=== PATIENT | male | born 1950 | race Caucasian/White ===

== ENCOUNTER 2017-11-13 19:05 | Emergency (ER) | payer MEDICARE ==
[2017-11-13 20:01] LABS: #Eosinphils 0.2 thou/uL (0.0-0.7); #Lymphocytes 1.2 thou/uL (1.20-3.40); #Monocytes 0.7 thou/uL (0.11-0.59); #Neutrophils 5.7 thou/uL (1.40-6.50); %Basophils 0.6 % (0.0-1.0); %Eosinophils 2.1 % (0.0-10.0); %Lymphocytes 15.7 % (21.0-51.0); %Monocytes 8.4 % (0.0-10.0); %Neutrophils 73.2 % (42.0-75.0); Hemoglobin 15.6 g/dL (14.0-18.0); Mean Corpuscular Hemoglobin 29.3 pg (27.0-31.0); Mean Corpuscular Volume 86.1 fl (80.0-94.0); Mean Platelet Volume 6.2 fL (7.4-10.4); Platelet Count 275 thou/uL (130-400); Red Blood Cell (RBC) Count 5.34 mill/uL (4.70-6.10); White Blood Cell (WBC) Count 7.7 thou/uL (4.8-10.8)
--- NOTE | 2017-11-13 20:09 | RAD ---
PORTABLE AP CHEST X-RAY 11/13/17 HISTORY: Headache since this a.m. Left upper extremity paresthesias. COMPARISON: 05/27/10. FINDINGS: The cardiac silhouette and pulmonary vasculature are within normal limits. The lungs remain clear. Th ere has been no interval change when compared to the prior exam. IMPRESSION: No acute cardiopulmonary process. POS: MARTHA
[2017-11-13 20:19] LABS: ALT (SGPT) 28 U/L (8-55); AST (SGOT) 19 U/L (5-34); Albumin 4.2 g/dL (3.4-4.8); Alkaline Phosphatase 43 U/L (40-150); Anion Gap 10 mmol/L (10-20); BUN (Urea Nitrogen) 10 mg/dL (8.4-25.7); Bilirubin, Total 0.6 mg/dL (0.2-1.2); Calc. Creatinine Clearance 0 mL/min (70-130); Calcium 9.2 mg/dL (7.8-10.44); Carbon Dioxide 30 mmol/L (23-31); Chloride 99 mmol/L (98-107); Estimated GFR-MDRD 84; Globulin 2.9 g/dL (2.4-3.5); Glucose 107 mg/dL (80-115); Protein, Total 7.1 g/dL (5.8-8.1); Sodium 135 mmol/L (136-145)
[2017-11-13 20:26] LABS: CKMB 3.5 ng/mL (0-6.6)
--- NOTE | 2017-11-13 20:50 | CT ---
NONCONTRAST CT HEAD 11/13/17 HISTORY: Headache with onset 1000 hours. Patient fills pressure behind eyes and sinuses. COMPARISON: None available. FINDINGS: There is no evidence of a hemorrhage, acute infarction, mass effect, or midline shift. Mild cerebral volume loss is present. The ventricular system is normal in size, shape and position for the degree o f sulcal atrophy. Minimal mucosal thickening is seen in the left maxillary antrum. The mastoid air ce lls are clear. There is a oval shaped soft tissue appearing mass seen within the region of the left nasal passage wh ich measures 2.8 cm x 1.4 cm which may represent a polyp. Calvarial structures are intact. IMPRESSION: 1. No acute intracranial abnormalities demonstrated. 2. Mass in the region of the left nasal passage which may represent a polyp. Direct visualizatio n is suggested. 3. Mild cerebral volume loss. POS: MARTHA
[2017-11-13] MEDS ORDERED: Dexamethasone 4 mg/ml Vial ONE (21:51)
== END 2017-11-13 22:27 | disposition home or self-care (01) ==
LOC: ERS 19:05
DX: J02.9 Acute pharyngitis, unspecified (principal); R09.81 Nasal congestion; I25.2 Old myocardial infarction; F41.9 Anxiety disorder, unspecified; F17.220 Nicotine dependence, chewing tobacco, uncomplicated; Z79.82 Long term (current) use of aspirin
CPT/HCPCS: 36415; 70450; 71045; 80053; 82553; 84484; 85025; 93005; 96374; J1100

== ENCOUNTER 2023-11-01 10:10 | Emergency (ER) | payer MEDICARE ==
[2023-11-01 10:45] LABS: #Eosinphils 0.1 thou/uL (0.0-0.7); #Monocytes 0.7 thou/uL (0.11-0.59); #Neutrophils 5.5 thou/uL (1.40-6.50); %Basophils 0.4 % (0.0-1.0); %Eosinophils 1.2 % (0.0-10.0); %Lymphocytes 12.9 % (21.0-51.0); %Monocytes 9.3 % (0.0-10.0); %Neutrophils 75.8 % (42.0-75.0); Hematocrit 45.6 % (42.0-52.0); Hemoglobin 15.7 g/dL (14.0-18.0); Mean Corpuscular HGB CONC 34.4 g/dL (32.0-36.0); Mean Corpuscular Hemoglobin 30.2 pg (27.0-31.0); Mean Corpuscular Volume 87.7 fl (78.0-98.0); Mean Platelet Volume 8.9 fL (7.4-10.4); Platelet Count 222 10x3/uL (130-400); White Blood Cell (WBC) Count 7.2 10x3/uL (4.8-10.8)
[2023-11-01 11:09] LABS: ALT (SGPT) 28 U/L (8-55); AST (SGOT) 22 U/L (5-34); Albumin 4.2 g/dL (3.4-4.8); Alkaline Phosphatase 42 U/L (40-110); Anion Gap 14 mmol/L (10-20); BUN (Urea Nitrogen) 8 mg/dL (8.4-25.7); Bilirubin, Total 0.8 mg/dL (0.2-1.2); Calc. Creatinine Clearance 0 mL/min (70-130); Calcium 9.3 mg/dL (7.8-10.44); Carbon Dioxide 24 mmol/L (23-31); Chloride 100 mmol/L (98-107); Estimated GFR 93; Glucose 101 mg/dL (83-110); Lipase 19 U/L (8-78); Potassium 4.3 mmol/L (3.5-5.1); Protein, Total 7.2 g/dL (5.8-8.1); Sodium 134 mmol/L (136-145)
[2023-11-01] MEDS ORDERED: fentaNYL 50 mcg/mL 1 mL Vial ONE (11:58)
[2023-11-01 12:37] LABS: Bacteria/HPF None Seen HPF (None Seen); Bilirubin Negative (Negative); Blood, Urine Negative (Negative); CAUTI Indications for Culture Acute Hematuria; Clarity Clear (Clear); Glucose, Urine (Dipstick) Normal (Negative); Ketone, Urine Negative (Negative); Leukocyte Negative Leu/uL (Negative); Nitrite Negative (Negative); Protein, Urine (Dipstick) Negative (Neg-Trace); RBC/HPF None Seen HPF (0-3); Squamous Epithelial None Seen HPF (0-3); Urobilinogen Normal mg/dL (Less than 2); WBC/HPF 0-3 HPF (0-3)
[2023-11-01 12:38] LABS: Specific Gravity, Urine 1.004 (1.002-1.036)
[2023-11-01 12:39] LABS: Urine Culture Reflex No No
[2023-11-01] MEDS ORDERED: Iopamidol-370 76% 500 ML MDV (1 ML CHARGE) ONE (13:51)
[2023-11-01 15:00] LABS: Troponin I Less than 0.010 ng/mL (< 0.028)
== END 2023-11-01 15:47 | disposition home or self-care (01) ==
LOC: ERS 10:10
DX: K56.600 Partial intestinal obstruction, unspecified as to cause (principal); F17.220 Nicotine dependence, chewing tobacco, uncomplicated
CPT/HCPCS: 71045; 74177; 80053; 81001; 83690; 83735; 83880; 84484; 85025; 93005; 96361; 96374; 99284; J3010; 36415; 82274; Q9967